=== PATIENT | male | born 1960 | race Caucasian/White ===

== ENCOUNTER 2018-07-22 09:54 | Observation (INO) | payer OTHER ==
[2018-07-22] MEDS ORDERED: NITROGLYCERIN (SL) 0.4 MG TAB SL ×2 (10:30→12:30)
[2018-07-22 10:47] LABS: ADD MAN DIFF? NO
[2018-07-22 10:50] LABS: BASOPHIL # 0.1 10^3/ul (0.0-0.1); BASOPHILS % 0.9 % (0.0-2.0); EOSINOPHILS # 0.1 10^3/ul (0.0-0.5); EOSINOPHILS % 1.6 % (0.0-7.0); LYMPHOCYTES % 29.8 % (15.0-51.0); MEAN CORPUSCULAR HEMOGLOBIN 31.7 pg (29.0-33.0); MEAN CORPUSCULAR VOLUME 93.3 fl (82.0-101.0); MONOCYTE # 0.4 10^3/ul (0.3-0.9); MONOCYTES % 6.1 % (0.0-11.0); NEUTROPHIL # 4.2 10^3/ul (1.6-7.5); NEUTROPHILS % 61.5 % (39.0-77.0); PLATELET COUNT 313 10^3/UL (140-415); RED BLOOD COUNT 5.36 10^6/ul (4.70-6.10); RED CELL DISTRIBUTION WIDTH 11.9 % (11.5-14.5)
[2018-07-22 10:50] LABS: WHITE BLOOD COUNT 6.8 10^3/ul (4.8-10.8)
[2018-07-22] MEDS: NITROGLYCERIN 2% 1 GM OINT PKT TD (11:01)
[2018-07-22] MEDS: ASPIRIN 81 MG TAB PO (11:02)
[2018-07-22 11:18] LABS: ANION GAP 7 (5-13); BLOOD UREA NITROGEN 12 mg/dl (7-20); CALCIUM 9.5 mg/dl (8.4-10.2); CARBON DIOXIDE 31 mmol/L (21-31); CHLORIDE 102 mmol/L (97-110); CREATININE 0.79 mg/dl (0.61-1.24); Estimated GFR > 60 mL/min (>60); GLUCOSE 89 mg/dl (70-220); POTASSIUM 4.3 mmol/L (3.5-5.1); SODIUM 140 mmol/L (135-144)
[2018-07-22 11:30] LABS: TROPONIN-I < 0.012 ng/ml (0.000-0.120)
[2018-07-22] MEDS ORDERED: ONDANSETRON 4 MG INJ IV ×2 (12:00→12:30)
[2018-07-22] MEDS ORDERED: ACETAMINOPHEN 325 MG TAB PO ×2 (12:00→12:30)
[2018-07-22] MEDS ORDERED: MAGNESIUM HYDROXIDE 30ML CUP PO (12:30)
[2018-07-22] MEDS ORDERED: DOCUSATE SODIUM 100 MG CAP PO (12:30)
[2018-07-22] MEDS ORDERED: NACL 0.9% 3 ML SYG IV (12:30)
[2018-07-22 12:45] LABS: CHOLESTEROL 252 mg/dl (100-200)
[2018-07-22 12:45] LABS: CHOL/HDL RATIO 2.6 RATIO; HDL CHOLESTEROL 95 mg/dl (28-71); LDL CHOLESTEROL,CALCULATED 138 mg/dl; TRIGLYCERIDES 95 mg/dl (0-149)
[2018-07-22 13:16] LABS: HEMOGLOBIN A1C 4.9 % (0-5.9)
[2018-07-22 13:18] LABS: CREATINE KINASE 107 IU/L (23-200)
[2018-07-22 13:31] LABS: CK INDEX 0.7; CK-MB 0.77 ng/ml (0.0-2.4); TROPONIN-I < 0.012 ng/ml (0.000-0.120)
[2018-07-22] MEDS: FAMOTIDINE 20 MG TAB PO (20:49)
[2018-07-22 23:31] LABS: CREATINE KINASE 72 IU/L (23-200)
[2018-07-22 23:42] LABS: CK INDEX 0.8; CK-MB 0.59 ng/ml (0.0-2.4); TROPONIN-I < 0.012 ng/ml (0.000-0.120)
[2018-07-23 06:20] LABS: ADD MAN DIFF? NO
[2018-07-23 06:21] LABS: BASOPHIL # 0.1 10^3/ul (0.0-0.1); BASOPHILS % 0.7 % (0.0-2.0); EOSINOPHILS # 0.2 10^3/ul (0.0-0.5); EOSINOPHILS % 2.4 % (0.0-7.0); HEMATOCRIT 46.8 % (42.0-52.0); HEMOGLOBIN 16.1 g/dl (14.0-18.0); LYMPHOCYTES % 23.5 % (15.0-51.0); MEAN CORPUSCULAR HEMOGLOBIN 31.9 pg (29.0-33.0); MEAN CORPUSCULAR HGB CONC 34.4 g/dl (32.0-37.0); MEAN CORPUSCULAR VOLUME 92.9 fl (82.0-101.0); MEAN PLATELET VOLUME 10.2 fl (7.4-10.4); MONOCYTE # 0.6 10^3/ul (0.3-0.9); MONOCYTES % 6.7 % (0.0-11.0); NEUTROPHIL # 5.6 10^3/ul (1.6-7.5); NEUTROPHILS % 66.5 % (39.0-77.0); PLATELET COUNT 287 10^3/UL (140-415); RED BLOOD COUNT 5.04 10^6/ul (4.70-6.10); RED CELL DISTRIBUTION WIDTH 11.9 % (11.5-14.5)
[2018-07-23 06:21] LABS: WHITE BLOOD COUNT 8.4 10^3/ul (4.8-10.8)
[2018-07-23 07:06] LABS: ANION GAP 6 (5-13); BLOOD UREA NITROGEN 14 mg/dl (7-20); CARBON DIOXIDE 29 mmol/L (21-31); CHLORIDE 104 mmol/L (97-110); CREATININE 0.77 mg/dl (0.61-1.24); Estimated GFR > 60 mL/min (>60); GLUCOSE 91 mg/dl (70-220); MAGNESIUM 1.7 mg/dl (1.7-2.5); POTASSIUM 4.2 mmol/L (3.5-5.1); SODIUM 139 mmol/L (135-144)
[2018-07-23] MEDS: FAMOTIDINE 20 MG TAB PO (08:29)
[2018-07-23] MEDS: ENOXAPARIN 40 MG/0.4 ML SYG SC (08:31)
== END 2018-07-23 15:06 | disposition home or self-care (01) ==
LOC: E/R 09:54 → TEL 11:40
DX: R07.89 Other chest pain (principal); E78.5 Hyperlipidemia, unspecified; Z23 Encounter for immunization
CPT/HCPCS: 36415; 71045; 80048; 80061; 82550; 82553; 83036; 83735; 84443; 84484; 85025; 90686; 93005; 93306; 99285-25; G0378